=== PATIENT | male | born 1960 | race Caucasian/White ===

== ENCOUNTER 2020-10-27 11:04 | Emergency (ER) | payer OTHER, SELFPAY ==
[2020-10-27] VITALS (41 sets, daily range): BP systolic 109–151; BP diastolic 63–128; PULSE 54–72; RESP 12–26; TEMP 36.6–36.8; O2SAT 95–99
--- NOTE | 2020-10-27 11:15 | RT.EKG_ITS ---
APPROVED REPORT Exam: Resting ECG Patient Location: E HR:65 bpm ECG Measurements Heart Rate [address] 134 P 52 QRSd 85 QRS 33 QT 391 T 39 QTc 409 Conclusion Sinus rhythm...normal P axis, V-rate 60- 99 Probable left atrial enlargement...P >50mS, <-0.10mV V1 sinus rhythm at 65, nl axis, no STEMI, non-diagnostic EKG
--- NOTE | 2020-10-27 11:15 | DI.CT_ITS ---
EXAM: CT CHEST/ABD/PEL W CLINICAL HISTORY: Epigastric pain, vomiting TECHNIQUE: Imaging Protocol: Axial computed tomography images with coronal and sagittal reformatted images were created and reviewed CONTRAST MATERIAL: Intravenous: Omnipaque 350 Contrast volume:100 mL Oral: No COMPARISON: No exams were available for comparison FINDINGS: CHEST: Tracheobronchial tree: Patent where visualized. Mediastinum and Mellissa: No dominant adenopathy or fluid collection. Pulmonary parenchyma: No consolidation or dominant measurable mass. No architectural distortion. Pleura: No effusion or pneumothorax. Heart: The heart is not dilated. No coronary artery calcifications are seen. No pericardial effusion. Aorta: Thoracic aorta non-dilated. Lymph nodes: Within normal limits. Bones:Mild degenerative changes are present. Soft tissues: Unremarkable. ABDOMEN: Liver: Normal density. No measurable mass. There are few tiny hypodensities in the liver. They are t oo small for further characterization, but likely reflect small cysts. Portal, Superior Mesenteric, and Splenic Veins: Unremarkable. Gallbladder and Biliary Tract: No radiodense calculus or dilation. Pancreas: Normal density, no abnormal calcifications or inflammatory process. Spleen: Normal. Adrenals: No masses seen. Kidneys: Normal size, contour and axis. There is a nonobstructing 2 mm stone in the superior pole of the left kidney. No masses seen. Abdominal Aorta: Abdominal portion non-dilated. Mild atherosclerosis. Bowel: No obstruction or bowel wall thickening. There are few scattered diverticula but no evidence o f acute diverticulitis. Appendix is unremarkable. There is a moderate amount of retained stool in the colon. Peritoneal Cavity: No ascites, collection or mesenteric inflammatory response. Lymph Nodes: Within normal limits. Bones: There is ankylosis of the sacroiliac joints bilaterally. Mild degenerative changes are seen i n the lumbar spine. Soft Tissues: There is a small fat containing umbilical hernia. PELVIS: Bladder: There is diffuse thickening of the wall of the urinary bladder. This may be due to underdis tention. An inflammatory infectious process cannot be excluded. Reproductive Organs: Mildly enlarged prostate gland. Lymph Nodes: Within normal limits. Bones: Please see the above discussion. IMPRESSION: 1. Mild diffuse thickening of the wall of the urinary bladder. This may be due to underdistention. An inflammatory or infectious cystitis cannot be excluded. 2. Left nephrolithiasis. No hydronephrosis. 3. Unremarkable CT scan of the chest. 4. Findings were discussed with the emergency department on the date of the examination. RADIATION DOSE DELIVERED: 1,358.84mGy.cm Total DLP DATA REPOSITORY: All CT scans at this facility are submitted to the National Radiology Data Registry (NRDR) Dose Index Registry (DIR) with the [employer] ([employer]). RADIATION OPTIMIZATION: All CT scans at this facility use at least one of these dose optimization te chniques: automated exposure control; mA and/or kV adjustment per patient size (includes targeted exa ms where dose is matched to clinical indication); or iterative reconstruction.
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
[2020-10-27] MEDS: Normal Saline 1,000 ML 150 ML IV (11:50)
[2020-10-27] MEDS: Ondansetron 4 MG/2 ML VIAL IVP (11:50)
[2020-10-27 12:04] LABS: Abs Immature Grans 0.02 10^3/uL (0.0-0.06); Absolute Basophil Count 0.02 10^3/uL (0.0-0.2); Absolute Lymphocyte Count 1.49 10^3/uL (1.2-3.4); Absolute Monocyte Count 0.54 10^3/uL (0.1-0.8); Absolute Neutrophil Count 5.07 10^3/uL (1.2-6.7); Basophils % 0.3; HCT 48.2 % (40.0-50.0); HGB 16.3 g/dL (13.5-17.5); Immature Grans % 0.3; Lymphocytes % 20.9; MCH 30.1 pg (27.0-33.0); MCHC 33.8 % (32.0-36.0); MCV 89.1 fL (80-95); Monocytes % 7.6; Neutrophils % 70.9; Nucleated RBC 0 %; Platelet Count 233 10^3/uL (130-400); RBC 5.41 10^6/uL (4.36-5.78); RDW 12.9 % (11.8-14.1); RDW-SD 42.2 fL; WBC 7.14 10^3/uL (4.4-10.8)
[2020-10-27 12:17] LABS: ALT 19 U/L (16-63); AST 10 U/L (15-37); Albumin 4.1 g/dL (3.4-5.0); Alkaline Phosphatase 62 U/L (46-116); Anion Gap 5.6 mmol/L (3-11); BUN 18 mg/dL (7-18); Bilirubin, Total 1.9 mg/dL (0.2-1.0); CO2 30.4 mmol/L (21.0-32.0); CREATININE 0.93 mg/dL (0.70-1.30); Calcium 9.5 mg/dL (8.5-10.1); Chloride 105 mmol/L (98-107); Glucose 110 mg/dL (74-106); Lipase 72 U/L (73-393); Magnesium 2.1 mg/dL (1.8-2.4); Potassium 4.3 mmol/L (3.5-5.1); Sodium 141 mmol/L (136-145); Total Protein 7.4 g/dL (6.4-8.2)
[2020-10-27 12:21] LABS: Troponin I < 0.05 ng/mL (<0.06)
[2020-10-27] MEDS: Omnipaque 350 MG/ML 100 ML BTL IJ (12:43)
[2020-10-27] MEDS: Normal Saline - Diluent 50 ML VIAL IV (12:44)
[2020-10-27 13:44] LABS: Bilirubin Negative (Negative); Blood Negative (Negative); Clarity Clear (Clear); Glucose Negative (Negative); Ketones Negative (Negative); Leukocyte Esterase Negative (Negative); Nitrite Negative (Negative); Specific Gravity 1.015 (1.005-1.025)
[2020-10-27 14:01] LABS: Bacteria Rare HPF (Negative); Casts Negative LPF (Negative); Crystals Negative HPF (Negative); Epithelial Cells Negative HPF (Negative); Mucus Heavy (Negative); WBC 0-2 HPF (0-5)
[2020-10-27 14:02] LABS: C & S Indicated? No
[2020-10-27 14:41] LABS: Troponin I < 0.05 ng/mL (<0.06)
== END 2020-10-27 15:37 | disposition home or self-care (01) ==
PROVIDERS: Emergency Provider Registered Nurse Emergency
DX: R11.2 Nausea with vomiting, unspecified (principal); R10.13 Epigastric pain; H53.8 Other visual disturbances
CPT/HCPCS: 36415; 74177; 80053; 83690; 93005; 96361; 96374; 99285; 71260; 81003; 81015; 83735; 84484; 85025; 93010; 99284; J2405; J3490

== ENCOUNTER 2020-12-03 10:07 | Emergency (ER) | payer OTHER, SELFPAY ==
[2020-12-03 10:22] VITALS: BP 138/73; PULSE 86; RESP 16; TEMP 36.6; O2SAT 99
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
--- NOTE | 2020-12-03 11:15 | DI.RAD_ITS ---
EXAM: XR HIP RT COMPLETE AP PELVIS INDICATION: pain with movement, weakness. COMPARISON: No exams were available for comparison TECHNIQUE: 2D digital imaging was performed. FINDINGS: Hip joint spaces are well maintained. there is bilateral acetabular spurring. There is no evidence of fracture. Enthesophytes are seen at the iliac wings. SI joints are and pubic symphysis are unre markable. IMPRESSION: Mild degenerative changes. No acute abnormality. DATA REPOSITORY: RADIATION DOSE DELIVERED:
[2020-12-03] MEDS: Lidocaine 5% Patch 1 PATCH TP (13:26)
[2020-12-03 13:27] VITALS: BP 132/78; PULSE 74; RESP 16; O2SAT 96
== END 2020-12-03 14:05 | disposition home or self-care (01) ==
PROVIDERS: Emergency Provider Physician Assistant
DX: M25.551 Pain in right hip (principal); E11.9 Type 2 diabetes mellitus without complications; Z79.84 Long term (current) use of oral hypoglycemic drugs
CPT/HCPCS: 36416; 82962; 99283; 73502; 99284